=== PATIENT | male | born 1975 | race Caucasian/White ===

== ENCOUNTER 2018-11-25 17:58 | Emergency (ER) | payer SELFPAY ==
[~2018-11-25] VITALS: Ht 175.3 cm; Wt 77.5 kg
[2018-11-25 18:12] VITALS: Ht 175.3 cm; Wt 77.5 kg
[2018-11-25] MEDS ORDERED: SOD CHLORIDE 0.9% 1,000 ML IV STA (19:55)
[2018-11-25] MEDS ORDERED: KETOROLAC 15 MG INJ IV STA (19:55)
[2018-11-25] MEDS ORDERED: ONDANSETRON 4 MG INJ IV STA (19:55)
--- NOTE | 2018-11-25 22:13 | ERD ---
ER Documentation Chief Complaint Chief Complaint L abd pain since this morning with nausea, denies vomiting HPI This is a 43-year-old man complaining of left-sided abdominal pain beginning this morning associated with nausea. Abdominal pain is nonradiating and nonexertional denies obvious precipitating or alleviating factors and denies prior similar episodes. Patient denies trauma, no fevers or chills, no anorexia, no complaints of chest pain or shortness of breath, no dysuria. Patient denies weight loss, blood per rectum, or melena. ROS All systems reviewed and are negative except as per history of present illness. Medications Home Meds Active Scripts Naproxen* (Naproxen*) 500 Mg Tablet, 500 MG PO BID PRN for PAIN, #30 TAB Prov:LESLEE SALINAS MD 11/25/18 Allergies Allergies: Coded Allergies: No Known Drug Allergies (Unverified Allergy, Unknown, 11/25/18) PMhx/Soc Medical and Surgical Hx: pt denies Medical Hx, pt denies Surgical Hx History of Surgery: No Anesthesia Reaction: No Hx Neurological Disorder: No Hx Respiratory Disorders: No Hx Cardiac Disorders: No Hx Psychiatric Problems: No Hx Miscellaneous Medical Probl: No Hx Alcohol Use: Yes (3x/day (beer)) Hx Substance Use: No Hx Tobacco Use: Yes Smoking Status: Current every day smoker Physical Exam Vitals Vital Signs Date Temp Pulse Resp B/P (MAP) Pulse Ox O2 O2 Flow FiO2 Time Delivery Rate 11/25/18 98.7 80 16 133/65 95 18:12 (87) Physical Exam GENERAL: Well-developed, well-nourished, well-hydrated, mild discomfort, afebrile HEENT: Moist mucous membranes, pink conjunctiva, no cervical spine tenderness or step-off deformities, no goiter, no jaundice or icterus, extraocular movements intact without pain. No submandibular induration, and no pharyngeal erythema NEURO: Alert and oriented 3, cranial nerves II through XII intact bilaterally, pupils equal round reactive to light, no focal deficits or facial asymmetry, sensation intact distally Strength 5/5 in upper and lower extremities bilaterally CARDIAC: Regular rate and rhythm, no murmurs rubs or gallops LUNGS: Clear bilaterally no wheezing crackles or stridor ABDOMEN: Soft nontender, no guarding, no rigidity, no rebound, no psoas sign no obturator sign. Normoactive bowel sounds Result Diagram: 11/25/18201411/25/182013 Results 24 hrs Laboratory Tests Test 11/25/18 20:14 11/25/18 20:15 Sodium Level 139 mmol/L Potassium Level 4.2 mmol/L Chloride Level 106 mmol/L Carbon Dioxide Level 24 mmol/L Anion Gap 9 Blood Urea Nitrogen 21 mg/dl Creatinine 0.77 mg/dl Est Glomerular Filtrat Rate mL/min > 60 mL/min Glucose Level 110 mg/dl Calcium Level 9.1 mg/dl Total Bilirubin 0.4 mg/dl Direct Bilirubin 0.00 mg/dl Indirect Bilirubin 0.4 mg/dl Aspartate Amino Transf (AST/SGOT) 39 IU/L Alanine Aminotransferase (ALT/SGPT) 54 IU/L Alkaline Phosphatase 86 IU/L Total Protein 7.9 g/dl Albumin 4.2 g/dl Globulin 3.70 g/dl Albumin/Globulin Ratio 1.13 Lipase 84 U/L White Blood Count 10.6 10^3/ul Red Blood Count 5.03 10^6/ul Hemoglobin 14.2 g/dl Hematocrit 43.0 % Mean Corpuscular Volume 85.5 fl Mean Corpuscular Hemoglobin 28.2 pg Mean Corpuscular Hemoglobin Concent 33.0 g/dl Red Cell Distribution Width 13.4 % Platelet Count 220 10^3/UL Mean Platelet Volume 10.6 fl Immature Granulocytes % 0.400 % Neutrophils % 80.4 % Lymphocytes % 6.9 % Monocytes % 8.4 % Eosinophils % 3.3 % Basophils % 0.6 % Nucleated Red Blood Cells % 0.0 /100WBC Immature Granulocytes # 0.040 10^3/ul Neutrophils # 8.6 10^3/ul Lymphocytes # 0.7 10^3/ul Monocytes # 0.9 10^3/ul Eosinophils # 0.4 10^3/ul Basophils # 0.1 10^3/ul Nucleated Red Blood Cells # 0.0 10^3/ul Current Medications Medications Dose Sig/Taj Start Time Status Last (Trade) Ordered Route PRN Stop Time Admin Dose Reason Admin Sodium 1,000 ml @ Q1H STAT 11/25/18 DC 11/25/18 Chloride 1,000 mls/hr IV 19:55 20:19 11/25/18 20:54 Ondansetron 4 mg ONCE STAT 11/25/18 DC 11/25/18 HCl (Zofran IV 19:55 20:19 Inj) 11/25/18 19:56 Ketorolac 15 mg ONCE STAT 11/25/18 DC 11/25/18 Tromethamine IV 19:55 20:19 (Toradol) 11/25/18 19:56 Procedures/MDM IV line was established patient was placed on machine marker rhythm strip revealed a sinus rhythm at about 80 bpm with upright P and T waves. Patient was afebrile I administered 1 L normal saline IV, Toradol 15 mg IV, Zofran 4 mg IV CBC was normal, electrolytes revealed mild dehydration, liver function tests were normal CT scan of the abdomen pelvis was performed, IMPRESSION: 1. The liver demonstrates decreased attenuation, consistent with hepatic steatosis. No acute abnormality of the solid organs. 2. There is a right iliac fat-density mass noted, measuring 8.8 cm AP by 3.8 cm transverse by 5.0 cm cranial-caudal, consistent with a lipoma. Mild displacement of the adjacent small bowel loops demonstrated on the coronal reformatted images. No associated acute abnormality. Consider follow-up CT in 12 months to confirm stability. 3. Small right inguinal hernia, containing only fat. 4. No acute bowel abnormality demonstrated. Patient has a right iliac lipoma and a small right inguinal hernia although I do not suspect either of these issues are causing his left-sided abdominal pain. His pain was controlled in the emergency department and his vital signs remained normal, patient is tolerating p.o. and is a good candidate for outpatient management. I did give him a copy of his CT scan report and recommend that he follow-up with his PMD for continued outpatient management and imaging in 12 months per the radiologist's recommendations Differential diagnoses considered, included but not limited to acute coronary s yndrome, pulmonary embolism, aortic dissection, abdominal aortic aneurysm, sepsis, stroke, meningitis, encephalitis, pneumonia, appendicitis, cholecystitis, bowel obstruction, pyelonephritis, nephrolithiasis, cystitis, as well as metabolic, hematologic, and electrolyte abnormalities. As well as absc ess, cellulitis, fractures, and dislocations. Patient feels much better at this time, and vital signs are normal, symptoms have improved. I did give strict instructions to return to the ED if symptoms continue or worsen, patient will otherwise follow-up with primary care physician. Patient understood instructions and agreed to plan. Disclaimer: Inadvertent spelling and grammatical errors are likely due to EHR/dictation software use and do not reflect on the overall quality of patient care. Also, please note that the electronic time recorded on this note does not necessarily reflect the actual time of the patient encounter. Departure Diagnosis: Primary Impression: Abdominal pain Abdominal location: left lower quadrant Qualified Codes: R10.32 - Left lower quadrant pain Condition: Good LESLEE SALINAS MD Nov 25, 2018 22:13
[2018-11-25] MEDS ORDERED: NAPR-688 PO (22:17)
[2018-11-25 23:16] VITALS: BP 118/66; PULSE 64; RESP 20
== END 2018-11-25 23:18 | disposition home or self-care (01) ==
LOC: E/R 17:58
DX: R10.32 Left lower quadrant pain (principal); F17.210 Nicotine dependence, cigarettes, uncomplicated; R11.0 Nausea
CPT/HCPCS: 36415; 74176; 80053; 83690; 85025; 96374; 96375; 99285; J1885; J2405; J7030